=== PATIENT | male | born 1940 ===

== ENCOUNTER → 2018-07-16 | Outpatient (CLI) | payer OTHER, MEDICAID | LOC: BHCLAF 16:15 | PROVIDERS: ATTEND Internal Medicine Cardiovascular Disease | DX: R06.02 Shortness of breath (principal); I10 Essential (primary) hypertension | CPT/HCPCS: 93306-PO ==

== ENCOUNTER → 2018-09-22 | Outpatient (CLI) | payer OTHER, MEDICAID | LOC: BHFA 09:30 ==